=== PATIENT | male | born 1965 | race Caucasian/White ===

== ENCOUNTER 2023-05-09 06:31 | Observation (INO) | payer OTHER, SELFPAY ==
[2023-05-09] VITALS (31 sets, daily range): BP systolic 86–104; BP diastolic 48–71; PULSE 69–92; RESP 10–23; TEMP 36.6–37.1; O2SAT 97–100; BMI 29.5
--- NOTE | ~2023-05-09 | US_ITS ---
Renal-Bladder ultrasound Clinical History: Elevated creatinine Technique: Real-time sonographic imaging of the kidneys and urinary bladder was performed. Findings: The right kidney measures 11.1 cm in length and the left kidney measures 12.6 cm. There is no hydronephrosis or renal calculus identified. Renal cortical echogenicity is within normal limits. No renal mass lesion is identified. The urinary bladder is moderately distended at the time of this exam. No intraluminal echoes are iden tified. No abnormal wall thickening is seen. Impression: Unremarkable ultrasound of the kidneys and urinary bladder. Reviewed, dictated and finalized at location M. Impression: Unremarkable ultrasound of the kidneys and urinary bladder.
--- NOTE | ~2023-05-09 | CT_ITS ---
Non-contrast CT scan of the Abdomen and Pelvis Clinical indication: Epigastric pain Technique: 2.5 mm axial scans were obtained through the abdomen and pelvis without intravenous or or al contrast. Dose reduction technique was used on this scan by utilizing automated exposure control a nd iterative reconstruction technique. The dose-length product (DLP) was 920.39 mGy-cm. Findings: Images through the lung bases reveal no abnormalities. There is no evidence of renal or ureteral calculi. The kidneys and the ureters are nondilated. Possib le 1.5 cm exophytic mass at the lower pole the left kidney, indeterminate on noncontrast exam. There is diffuse fatty infiltration of the liver, probable focal areas of fatty sparing adjacent to t he gallbladder. The spleen, pancreas, gallbladder, and adrenals appear normal. There are atherosclero tic calcifications of the aorta. There is no evidence of bowel obstruction. There is sigmoid diverticulosis. No abscess or free air. N ormal appendix. Images through the pelvis were performed. There is no evidence of ascites or lymphadenopathy. Urinary bladder unremarkable. Prostate gland and seminal vesicles are unremarkable. Bilateral fat-containing inguinal hernias are present, right larger than left. Impression: Suspected 1.5 cm exophytic mass at the lower pole the left kidney, indeterminate. Follow-up pre- and postcontrast CT or MR recommended to further evaluate. Diffuse fatty infiltration of liver. Bilateral fat-containing hernias, right larger than left. Reviewed, dictated and finalized at [facility]. Impression: Suspected 1.5 cm exophytic mass at the lower pole the left kidney, indeterminat e. Follow-up pre- and postcontrast CT or MR recommended to further evaluate. Diffuse fatty infiltration of liver. Bilateral fat-containing hernias, right larger than left.
--- NOTE | ~2023-05-09 | US_ITS ---
Limited Abdominal Sonogram: Real-time sonographic imaging of the right upper quadrant was performed. Clinical History: Right upper quadrant pain Findings: The liver appears echogenic, with no evidence of bile duct dilatation. Liver measures 21.1 cm in length. Probable focal fatty sparing adjacent to the gallbladder. Main portal vein demonstrate s normal direction of flow. The gallbladder is well distended, and appears normal with no evidence of gallstone or wall thickening. The common bile duct measures 5 mm. The visualized pancreas, aorta, a nd IVC are unremarkable. Impression: Diffuse fatty infiltration of the liver with associated hepatomegaly. Probable focal fatty sparing adjacent to gallbladder. Reviewed, dictated and finalized at location . Impression: Diffuse fatty infiltration of the liver with associated hepatomegaly. Probable focal fatty sparing adjacent to gallbladder.
--- NOTE | ~2023-05-09 | XR_ITS ---
Clinical Indication: Shortness of breath PA and lateral views of the chest: Comparison: 09/26/2006 Findings: The lungs are clear, without evidence of focal consolidation or pleural effusion. Cardiome diastinal silhouette is within normal limits. Bones and soft tissues are unremarkable. Impression: Normal chest. Reviewed, dictated and finalized at location . Impression: Normal chest.
--- NOTE | 2023-05-09 07:24 | ED.GENADULT ---
HPI - General Adult General Chief complaint: Urogenital-Male Stated complaint: have not had a BM in ten days Time Seen by Provider: 05/09/23 07:01 History of Present Illness HPI narrative: Patient is a 58-year-old male who presents to the ER with reports of constipation and decreased urination. Ongoing over the last week and a half. Reports he has been eating and drinking normally. Reports he is increased his fluid intake due to decreased urination. Denies history of kidney issues. No urinary frequency urgency or dysuria. He has been having some abdominal fullness and pain. Occasionally pain will move back in between his shoulder blades. No chest pain or chest pressure. No fevers or chills or sweats. He reports that he has had small volume hard stool. No weight loss. Related Data Home Medications Medication Instructions Recorded Confirmed albuterol sulfate 90 mcg/actuation 2 puff inhalation PRN 05/09/23 05/09/23 aerosol inhaler apixaban 5 mg tablet (Eliquis) 5 mg PO DAILY 05/09/23 05/09/23 atorvastatin 20 mg tablet 20 mg PO DAILY 05/09/23 05/09/23 cyclobenzaprine 10 mg tablet 10 mg PO TID 05/09/23 05/09/23 hydrocodone 10 mg-acetaminophen 10 tablet PO Q4H PRN Pain 05/09/23 05/09/23 325 mg tablet insulin glargine 100 unit/mL (3 30 unit subcut HS 05/09/23 05/09/23 mL) subcutaneous pen (Basaglar KwikPen U-100 Insulin) lisinopril 10 mg tablet 10 mg PO DAILY 05/09/23 05/09/23 metoprolol succinate 25 mg 25 mg PO DAILY 05/09/23 05/09/23 tablet,extended release 24 hr nitroglycerin 0.4 mg sublingual 0.4 mg sublingual ONCE PRN Chest 05/09/23 05/09/23 tablet Pain triamterene 75 75 tablet PO DAILY 05/09/23 05/09/23 mg-hydrochlorothiazide 50 mg tablet Allergies Allergy/AdvReac Type Severity Reaction Status Date / Time No Known Allergies Allergy Unknown Verified 05/09/23 15:28 Review of Systems Review of Systems: All systems reviewed & are unremarkable except as noted in HPI and below Constitutional: Constitutional: Denies chills, Reports fatigue and Denies fever(s) ENT: Denies nasal congestion and Denies sore throat Cardiovascular: Cardiovascular: Denies chest pain, Denies rapid heart rate and Denies radiating jaw, neck or arm pain Respiratory: Respiratory: Denies cough and Denies dyspnea Gastrointestinal: Gastrointestinal: Reports abdominal pain, Reports constipation, Denies nausea and Denies vomiting Genitourinary: Genitourinary: Reports oliguria, Denies dysuria, Denies urinary frequency and Denies urinary incontinence PMFSH Past Medical History Medical History (Updated 05/09/23 @ 18:10 by Smooth Rosa MD) Atrial fibrillation Diabetes Hyperlipidemia Hypertension Surgical History Surgical History (Updated 05/09/23 @ 14:55 by Daniella Burgos NP) H/O cardiac radiofrequency ablation Family History Family History Mother Cerebrovascular accident Heart attack AA (alcohol abuse) Father Heart attack MVA (motor vehicle accident) Social History Social History (Updated 05/09/23 @ 14:57 by Daniella Burgos NP) Social History: The patient lives with his significant other Selina justin is his durable power front desk supervisor for healthcare. The patient was smoking a pack a cigarettes a day but has not smoked any in the last 10 days. He also drinks a couple drinks a day but has not drank any since he has felt ill. He does use marijuana. Patient has had 8-9 biological children but most of them were given up for adoption. The patient is . 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 Code status full code Smoking status: Current some day smoker Tobacco type: cigarettes Alcohol intake: former Substance use: current Substance use type: marijuana Last use: 05/08/23 Lack of Transportation: No Lack of Food: Never True Current Housing: I Have Housing Concerned About Future Housing: No Difficulty
--- NOTE | 2023-05-09 07:25 | ECG_ITS ---
Measurements Intervals [place] Rate: 69 P: 65 IN: 191 QRS: 72 QRSD: 105 T: 70 QT: 392 QTc: 420 Interpretive Statements SINUS RHYTHM NONSPECIFIC T-WAVE ABNORMALITY- HIGH LATERAL LEADS BORDERLINE ECG NO PREVIOUS ECG AVAILABLE FOR COMPARISON Electronically Signed On 05-09-2023 8:00:58 CDT by Hugo Bravo D.O.
[2023-05-09] MEDS: SODIUM CHLORIDE 0.9% IV 1,000 ML 999 ML IV CONT ×2 (07:35→09:50)
[2023-05-09 07:50] LABS: Basophils Absolute Auto 0.1 K/mm3 (0.0-0.1); Basophils Percent Auto 0.8 % (0.2-1.2); Eosinophils Absolute Auto 0.2 K/mm3 (0-0.3); Eosinophils Percent Auto 2.3 % (0-4.4); Hematocrit 36.5 % (42.0-52.0); Hemoglobin 12.2 g/dL (14.0-18.0); Immature Granulocyte Absolute 0.17 K/mm3 (0.00-0.031); Immature Granulocyte Percent A 1.9 % (0-0.5); Lymphocytes Percent Auto 21.9 % (18.3-44.2); Mean Corpuscular HGB Conc 33.4 g/dl (32-36); Mean Corpuscular Volume 92.9 fl (80-100); Mean Platelet Volume 10.1 fl (7.4-10.4); Monocytes Absolute Auto 0.7 K/mm3 (0.1-0.6); Monocytes Percent Auto 7.5 % (2.6-8.5); Neutrophils Percent Auto 65.6 % (45.5-73.1); Platelet Count Result 209 k/mm3 (150-375); Red Blood Count 3.93 M/mm3 (4.6-6.20); Red Cell Distribution Width 12.5 % (11.5-14.5); White Blood Count 9.1 K/mm3 (4.5-10.0)
[2023-05-09 08:00] LABS: Alanine Aminotransferase 63 U/L (6-50); Albumin Level 4.1 g/dL (3.5-5.1); Alkaline Phosphatase 76 U/L (38-126); Anion Gap 12 mmol/L (8-16); Aspartate Amino Transferase 60 U/L (17-59); Bilirubin,Total 0.3 mg/dL (0.2-1.3); Blood Urea Nitrogen 92 mg/dL (9-20); Calcium 11.4 mg/dL (8.4-10.2); Carbon Dioxide 17 mmol/L (22-30); Chloride 102 mmol/L (98-107); Estimated CRCL calculation 25 ml/min; Estimated Glomerular Filt Rate 17; Glucose 156 mg/dL (65-110); Lipase 376 U/L (23-300); Potassium 3.9 mmol/L (3.4-5.0); Sodium 131 mmol/L (137-145)
[2023-05-09 08:01] LABS: INR 1.5; Prothrombin Time 19.1 Seconds (11.1-14.7)
[2023-05-09 08:02] LABS: Partial Thromboplastin Time 32.1 SECONDS (22.3-36.8)
[2023-05-09 08:12] LABS: Troponin I 0.022 ng/mL (0.000-0.034)
[2023-05-09 09:10] LABS: Appearance Urine Clear (Clear); Bacteria Urine None Seen /hpf; Bilirubin Urine Negative (Negative); Blood Urine Negative (Negative); Color Urine Yellow (Yellow); Glucose Urine UA Negative (Negative); Ketones Urine Negative (Negative); Leukocyte Esterase Ur Negative LEU/UL (Negative); Nitrate Urine Negative (Negative); Non Pathogenic Casts 0-2; Protein Urine 1+ mg/dL (Negative); RBC Urine 0-2 /hpf (0-2); Specific Grav Ur 1.011 (1.001-1.035); Squamous Epithelial Cell Urine None seen /hpf (Few); Urobilinogen Urine 0.2 mg/dL (<2.0); WBC Urine 0-5 /hpf; pH Urine 6.5 (5.0-9.0)
[2023-05-09 10:03] LABS: Add Urine Microscopic? YES
--- NOTE | 2023-05-09 10:22 | PM.CNNEP ---
Assessment and Plan Assessment and plan (1) Acute kidney injury: Code(s): N17.9 - Acute kidney failure, unspecified Status: Acute Assessment and Plan: the patient has acute kidney injury. We do not have any old records right now but he has never been told he had kidney problems in the past and has several doctors looking at him for his various disorders. The patient has nausea and vomiting. It is possible that the nausea and vomiting could be caused by uremia. It is also possible that the nausea and vomiting could be caused by something else and he got dehydrated causing the high BUN creatinine. He does not look volume overloaded. Has no swelling. The patient does seem to have some prostatic symptoms however his CT scan did not show a distended bladder and the prostate does not look remarkable. I will have the nurse do a bladder scan in case there is some bladder distention. The patient is on ibuprofen which probably did not primarily cause the renal failure but certainly may have made it worse. The patient has a little bit of protein in his urine but not much blood. It is likely the protein is from the diabetes and or the hypertension but glomerulonephritis is always possible. Will check some serology. Rhabdomyolysis could be occurring. 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 Infiltrative diseases can do this as well. Will get immunofixation. The patient will get a chest x-ray, CPK, serology, immunofixation, urine electrolytes and a renal ultrasound. Will give some IV fluid, he is certainly at least a little dry since he has not been taking anything in for the last 10 days. Will see what the bladder scan shows. (2) Hypertension: Code(s): I10 - Essential (primary) hypertension Status: Acute Assessment and Plan: Blood pressure is under good control (3) Diabetes: Code(s): E11.9 - Type 2 diabetes mellitus without complications Status: Acute Assessment and Plan: Management per hospitalists (4) Atrial fibrillation: Code(s): I48.91 - Unspecified atrial fibrillation Status: Acute Assessment and Plan: His heart rate is well controlled and he is in sinus rhythm History of Present Illness Reason for Consult Consult date: 05/09/23 Chief Complaint Chief complaint: have not had a BM in ten days History of Present Illness Narrative: Mr. Ortega Altman is a very pleasant 58-year-old gentleman who has multiple medical problems including atrial fibrillation status post ablation, hypertension, diabetes, hyperlipidemia. The patient came to the hospital because he was having belly discomfort. It is mostly in the lower abdomen. This is been going on for about 10 days or so. At 1st it started with diarrhea but then the diarrhea stops the knees had trouble with bowel movements ever since. He has had some nausea and vomiting. He has not been eating very well. No fevers or chills. No skin rash. No chest pain or shortness of breath. No swelling. The patient has also been having urinary issues. He gets up at night at least 2-3 times per night to urinate. The stream is slow and the volume is low. There is some dribbling as well. This is been a problem for the last year or so but seems to have worsened. He did make some urine earlier today. He does not have any bloody urine, foamy urine, kidney stones, bladder infections. He does not have any hemoptysis or epistaxis. He takes ibuprofen every day. He drinks socially. He smokes cigarettes. Review of Systems Constitutional: Constitutional: Reports no additional constitutional complaints Eyes: Eyes: Reports no additional eye complaints ENT: Reports system reviewed and no additional complaints, except as documented Cardiovascular: Cardiovascular: Reports no additional cardiovascular complaints Respiratory: Respiratory: Reports no additional respiratory complaints Gastrointes
--- NOTE | 2023-05-09 11:00 | ADMGEN ---
This patient, Robert Tse, was admitted to 2 Medical Room 260-. Patient/family oriented to hospital policies and general routines including ID bracelet, bed and alarms, visiting hours, pain management, procedures, bathroom and other care routines, personal items, smoking policy, room service/diet, and visiting hours. Information on how to activate the Rapid Response Team has been discussed. Patient/Family are encouraged to report perceived risks to care and to ask questions if they do not understand what they are told or what they should do.
[2023-05-09] MEDS: SODIUM CHLORIDE 0.9% IV 1,000 ML 125 ML IV CONT ×2 (11:27→19:21)
[2023-05-09 11:37] LABS: Creatine Kinase 49 U/L (55-170)
[2023-05-09 12:33] LABS: Erythrocyte Sedimentation Rate 41 mm/hr (0-20)
--- NOTE | 2023-05-09 12:45 | PM.IMHP ---
H&P: HPI History of Present Illness Date/Time: 05/09/23 12:45 Chief Complaint: The vomiting and fatigue Review of Systems Review of Systems: This is a 58-year-old male patient who has a history of hypertension. He has no previous history of any chronic renal disease. 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 He continued to take his diuretics. The patient just feels very fatigued. He has been sleeping a lot. H&H is 12.2 and 36. ESR is 41. Sodium is 139. BUN 92 creatinine 3.8. Glucose is 156. AST 60 and ALT 63. The patient stated that he did have some nausea and vomiting as well. His lipase was 376. Nephrology has been consulted. Chest x-ray was read as normal chest. Renal ultrasound was read as unremarkable ultrasound of the kidneys and urinary bladder. Patient stated that he has had decreased urination. Abdominal pelvis CT was read as the following Suspected 1.5 cm exophytic mass at the lower pole the left kidney, indeterminate. Follow-up pre- and postcontrast CT or MR recommended to further evaluate. Diffuse fatty infiltration of liver. Bilateral fat-containing hernias, right larger than left. Upper quadrant I her son has redness following Diffuse fatty infiltration of the liver with associated hepatomegaly. Probable focal fatty sparing adjacent to gallbladder. Patient was given 3 L of IV fluids. The patient is being admitted to observation status on the date as is 05/09/2023 [facility] Past Medical History Medical History (Updated 05/09/23 @ 14:55 by Daniella Burgos NP) Atrial fibrillation Diabetes Hyperlipidemia Hypertension Surgical History Surgical History (Updated 05/09/23 @ 14:55 by Daniella Burgos NP) H/O cardiac radiofrequency ablation Family History Family History Mother Cerebrovascular accident Heart attack AA (alcohol abuse) Father Heart attack MVA (motor vehicle accident) Social History Social History (Updated 05/09/23 @ 14:57 by Daniella Burgos NP) Social History: The patient lives with his significant other Selina justin is his durable power assistant city attorney for healthcare. The patient was smoking a pack a cigarettes a day but has not smoked any in the last 10 days. He also drinks a couple drinks a day but has not drank any since he has felt ill. He does use marijuana. Patient has had 8-9 biological children but most of them were given up for adoption. The patient is . 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 Code status full code Smoking status: Current some day smoker Tobacco type: cigarettes Alcohol intake: former Substance use: current Substance use type: marijuana Last use: 05/08/23 Lack of Transportation: No Lack of Food: Never True Current Housing: I Have Housing Concerned About Future Housing: No Difficulty Paying Gas/Electric Bills: No Difficulty Paying for Meds: No Currently Unemployed: No Education: High School Diploma/GED Difficulty w/ Childcare or Family Care: No Spiritual care concerns: No Meds Home Medications and Allergies Home Medications Medication Instructions Recorded Confirmed Type albuterol sulfate 90 mcg/actuation 2 puff inhalation PRN 05/09/23 05/09/23 History aerosol inhaler apixaban 5 mg tablet (Eliquis) 5 mg PO DAILY 05/09/23 05/09/23 History atorvastatin 20 mg tablet 20 mg PO DAILY 05/09/23 05/09/23 History cyclobenzaprine 10 mg tablet 10 mg PO TID 05/09/23 05/09/23 History hydrocodone 10 mg-acetaminophen 10 tablet PO Q4H PRN Pain 05/09/23 05/09/23 History 325 mg tablet insulin glargine 100 unit/mL (3 30 unit subcut HS 05/09/23 05/09/23 History mL) subcutaneous pen (Basaglar KwikPen U-100 Insulin) lisinopril 10 mg tablet 10 mg PO DAILY 05/09/23 05/09/23 History me
[2023-05-09 13:15] LABS: Urea Random Urine 469 MG/DL
[2023-05-09 13:36] LABS: Sodium Urine Random 53 meq/L
[2023-05-09 16:07] LABS: Complement C3 183 mg/dL (88-165)
[2023-05-09 17:06] LABS: Glucose Point of Care 201 mg/dl (65-105)
[2023-05-09] MEDS: HYDROcodone/acetaminophen (*CRX) 10-325 MG TABLET 1 TAB PO ×2 (17:13→21:15)
[2023-05-09] MEDS: CYCLOBENZAPRINE HCL 10 MG TABLET PO (17:14)
[2023-05-09] MEDS: INSULIN ASPART (*BKC) 100 UNITS/ML SUB-Q ×2 (17:17→20:49)
[2023-05-09 20:09] LABS: Total Protein Urine Random 27 mg/dL; Ur Ttl Prot Creatinine Ratio 0.47 mg/mg (0-0.20)
[2023-05-09] MEDS: INSULIN GLARGINE (*BKC) 100 UNITS/ML 30 UNITS SUB-Q (20:50)
[2023-05-09 20:59] LABS: Glucose Point of Care 203 mg/dl (65-105)
[2023-05-10] MEDS: HYDROcodone/acetaminophen (*CRX) 10-325 MG TABLET 1 TAB PO ×4 (02:35→19:28)
[2023-05-10] MEDS: SODIUM CHLORIDE 0.9% IV 1,000 ML 125 ML IV CONT ×3 (03:20→19:28)
[2023-05-10 05:40] VITALS: BP 100/55; PULSE 75; RESP 17; TEMP 36.7; O2SAT 100
[2023-05-10 05:46] LABS: Lactic Acid Reflex 0.8 mmol/L (0.7-2.0)
[2023-05-10 05:50] LABS: Alanine Aminotransferase 57 U/L (6-50); Albumin Level 3.7 g/dL (3.5-5.1); Alkaline Phosphatase 62 U/L (38-126); Anion Gap 9 mmol/L (8-16); Aspartate Amino Transferase 49 U/L (17-59); Bilirubin,Total 0.2 mg/dL (0.2-1.3); Blood Urea Nitrogen 59 mg/dL (9-20); Calcium 9.9 mg/dL (8.4-10.2); Carbon Dioxide 16 mmol/L (22-30); Chloride 114 mmol/L (98-107); Estimated CRCL calculation 49 ml/min; Estimated Glomerular Filt Rate 45; Glucose 135 mg/dL (65-110); Magnesium 1.9 mg/dL (1.6-2.3); Phosphorus 3.9 mg/dL (2.5-4.5); Potassium 3.9 mmol/L (3.4-5.0); Sodium 139 mmol/L (137-145)
[2023-05-10 06:54] LABS: Thyroid Stimulating Hormone Reflex 0.481 uIU/mL (0.465-4.68)
[2023-05-10 07:36] LABS: Hemoglobin A1C 8.1 % (<5.7)
[2023-05-10 08:20] VITALS: PULSE 76; RESP 18; O2SAT 100
[2023-05-10] MEDS: METOPROLOL SUCCINATE EXT REL 25 MG TABCR PO (08:20)
[2023-05-10] MEDS: ATORVASTATIN 20 MG TABLET PO (08:20)
[2023-05-10] MEDS: CYCLOBENZAPRINE HCL 10 MG TABLET PO ×3 (08:20→16:37)
[2023-05-10] MEDS: APIXABAN 5 MG TABLET PO (08:20)
[2023-05-10 08:27] LABS: Glucose Point of Care 151 mg/dl (65-105)
[2023-05-10 12:35] LABS: Glucose Point of Care 173 mg/dl (65-105)
[2023-05-10 14:00] VITALS: BP 109/56; PULSE 87; RESP 16; TEMP 36.5; O2SAT 99
--- NOTE | 2023-05-10 14:35 | PM.PNNEP ---
Progress Note: A&P Assessment and Plan (1) Acute kidney injury: Code(s): N17.9 - Acute kidney failure, unspecified Status: Acute Assessment and Plan: the patient has acute kidney injury. Urine electrolytes non pre renal Fractional excretion of urine is less than 25% which is consistent with pre renal azotemia. Urinalysis is bland CK is not elevated Renal sonogram shows no obstruction Most likely this is pre renal azotemia. Ibuprofen may have been playing a role as well. Urine output is better. Creatinine is improved. Continue IV fluids. (2) Hypertension: Code(s): I10 - Essential (primary) hypertension Status: Acute Assessment and Plan: Blood pressure is under good control (3) Diabetes: Code(s): E11.9 - Type 2 diabetes mellitus without complications Status: Acute Assessment and Plan: Management per hospitalists (4) Atrial fibrillation: Code(s): I48.91 - Unspecified atrial fibrillation Status: Acute Assessment and Plan: His heart rate is well controlled and he is in sinus rhythm Subjective Date/time seen: 05/10/23 14:35 Interval history: Patient feels better today. No chest pain or shortness of breath Review of Systems Cardiovascular: Cardiovascular: Reports no additional cardiovascular complaints Respiratory: Respiratory: Reports no additional respiratory complaints Gastrointestinal: Gastrointestinal: Reports no additional gastrointestinal complaints Genitourinary: Genitourinary: Reports no additional male genitourinary complaints Exam Narrative: WDWN in NAD skin no rash head ncat lungs clear cor reg no rub abd BS+ nontender and soft ext no edema. Objective Data Vital Signs Vital Signs: Vital Signs - 24 hr 05/09/23 21:37 05/09/23 20:00 05/10/23 05:40 Temperature 97.9 F 98.0 F Pulse Rate 84 75 Respiratory Rate 18 17 Blood Pressure 102/56 L 100/55 L Pulse Oximetry 99 100 Oxygen Delivery Room Air 05/10/23 08:20 05/10/23 08:20 Temperature Pulse Rate 76 Respiratory Rate 18 Blood Pressure Pulse Oximetry 100 Oxygen Delivery Room Air Intake/Output Intake/Output: Intake & Output 05/07/23 05/08/23 05/09/23 05/10/23 23:59 23:59 23:59 23:59 Intake Total 3580 3030 Output Total 1600 2500 Balance 1980 530 Meds/Results Medications: Active Medications Generic Name Dose Route Start Last Admin Trade Name Freq PRN Reason Stop Dose Admin Acetaminophen 650 mg 05/09/23 09:49 Acetaminophen 325 Mg Tablet PO Q4H PRN Mild Pain (1-3) or Fever Hydrocodone Bitart/Acetaminophen 1 tab 05/09/23 09:49 Hydrocodone/Acetaminophen (*Crx) 5-325 Mg Tablet PO Q4H PRN Pain Rated 4-6 Hydrocodone Bitart/Acetaminophen 1 tab 05/09/23 14:58 05/10/23 12:47 Hydrocodone/Acetaminophen (*Crx) 10-325 Mg Tablet PO 1 tab Q4H PRN Administration Pain 7-10 Albuterol 2 puff 05/09/23 15:00 Albuterol Sulfate (*Sp) Aerosol 1 Puff INHALATION PRN PRN Shortness Of Breath Apixaban 5 mg 05/10/23 09:00 05/10/23 08:20 Apixaban 5 Mg Tablet PO 5 mg DAILY THUY Administration Atorvastatin Calcium 20 mg 05/10/23 09:00 05/10/23 08:20 Atorvastatin 20 Mg Tablet PO 20 mg DAILY THUY Administration Cyclobenzaprine HCl 10 mg 05/09/23 17:00 05/10/23 12:47 Cyclobenzaprine Hcl 10 Mg Tablet PO 10 mg TID THUY Administration Dextrose 12.5 gm 05/09/23 14:59 Dextrose 50% 25 Gm/50 Ml Syringe IV PUSH PRN PRN Hypoglycemia Protocol Docusate Sodium 100 mg 05/10/23 21:00 Docusate Sodium 100 Mg Capsule PO Q12HR THUY Glucagon 1 mg 05/09/23 14:59 Glucagon For Inj 1 Mg Vial IM PRN PRN Hypoglycemia Protocol Glucose 15 gm 05/09/23 14:59 Glucose Oral Gel 15 Gm Of Glucse In 37.5 Gm Tube PO PRN PRN Hypoglycemia Protocol Sodium Chloride 1,000 mls @ 125 mls/hr
--- NOTE | 2023-05-10 14:38 | WPDPN ---
Progress Note: A&P Assessment and Plan (1) Acute kidney injury: Code(s): N17.9 - Acute kidney failure, unspecified Status: Acute Assessment and Plan: Patient stated he has had no previous history of any chronic kidney disease. The patient states that he feels that he got dehydrated and was overheated at work 1 day and has never regained his hydration. The patient also had nausea and vomiting. The patient continued to take his triamterene with hydrochlorothiazide. He is also on lisinopril. All of these medications could of made his renal failure worse. He also has a history of hypertension and diabetes. Which could contribute to his renal failure. Continue to hydrate. Nephrology has been consulted. Further labs have been ordered. Renal ultrasound revealing is unremarkable kidneys. Abdominal pelvis CT was read as follows Suspected 1.5 cm exophytic mass at the lower pole the left kidney, indeterminate. Follow-up pre- and postcontrast CT or MR recommended to further evaluate. Diffuse fatty infiltration of liver. Bilateral fat-containing hernias, right larger than left. 05/10/2023 interval history: patient with TREMAINE seen by dip guider stoves suspect multifactorial with dehydration from poor PO intake due to nausea and vomiting, patient stats he is feeling better, and work up is in progress, will monito. (2) Hypertension: Code(s): I10 - Essential (primary) hypertension Status: Acute Assessment and Plan: Hold lisinopril due to acute renal failure. Hold diuretics as well. continue with metoprolol. His blood pressure is low at 101/53. (3) Diabetes: Code(s): E11.9 - Type 2 diabetes mellitus without complications Status: Acute Assessment and Plan: Accu-Cheks AC and HS. Continue with glargine insulin with hypoglycemic protocol. (4) Atrial fibrillation: Code(s): I48.91 - Unspecified atrial fibrillation Status: Acute Assessment and Plan: The patient has had an ablation and sounds regular now. EKG was read as sinus rhythm. The patient is on Eliquis and metoprolol. (5) Hyperlipidemia: Code(s): E78.5 - Hyperlipidemia, unspecified Status: Acute Assessment and Plan: Continue with atorvastatin. Subjective Date/time seen: 05/10/23 14:38 Interval history: HPI This is a 58-year-old male patient who has a history of hypertension.? He has no previous history of any chronic renal disease.? 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 He continued to take his diuretics.? The patient just feels very fatigued.? He has been sleeping a lot.? H&H is 12.2 and 36.? ESR is 41.? Sodium is 139.? BUN 92 creatinine 3.8.? Glucose is 156.? AST 60 and ALT 63.? The patient stated that he did have some nausea and vomiting as well.? His lipase was 376.? Nephrology has been consulted.? Chest x-ray was read as normal chest.? Renal ultrasound was read as unremarkable ultrasound of the kidneys and urinary bladder.? Patient stated that he has had decreased urination.? Abdominal pelvis CT was read as the following?Suspected 1.5 cm exophytic mass at the lower pole the left kidney, indeterminate. Follow-up pre- and postcontrast CT or MR recommended to further evaluate. Diffuse fatty infiltration of liver. Bilateral fat-containing hernias, right larger than left. Upper quadrant I her son has redness following Diffuse fatty infiltration of the liver with associated hepatomegaly. Probable focal fatty sparing adjacent to gallbladder.? Patient was given 3 L of IV fluids 05/10/2023 interval history: patient with TREMAINE seen by dip guider stoves suspect multifactorial with dehydration from poor PO intake due to nausea and vomiting, patient stats he is feeling better, and work up is in progress, will monito. Review of Systems Cardiovascular: Cardiovas
[2023-05-10] MEDS: polyethylene glycoL 3350 17 GM POWD.PACK PO (14:58)
[2023-05-10 17:34] LABS: Glucose Point of Care 134 mg/dl (65-105)
[2023-05-10] MEDS: INSULIN ASPART (*BKC) 100 UNITS/ML SUB-Q (20:30)
[2023-05-10] MEDS: DOCUSATE SODIUM 100 MG CAPSULE PO (20:30)
[2023-05-10] MEDS: INSULIN GLARGINE (*BKC) 100 UNITS/ML 30 UNITS SUB-Q (20:31)
[2023-05-10 20:48] LABS: Glucose Point of Care 217 mg/dl (65-105)
[2023-05-10 21:01] VITALS: BP 103/59; PULSE 88; RESP 17; TEMP 36.6; O2SAT 99
[2023-05-11 07:20] LABS: Hemoglobin 10.4 g/dL (14.0-18.0); Mean Corpuscular HGB Conc 32.5 g/dl (32-36); Mean Corpuscular Volume 95.2 fl (80-100); Mean Platelet Volume 9.7 fl (7.4-10.4); Platelet Count Result 140 k/mm3 (150-375); Red Blood Count 3.36 M/mm3 (4.6-6.20); Red Cell Distribution Width 12.6 % (11.5-14.5); White Blood Count 4.3 K/mm3 (4.5-10.0)
[2023-05-11 07:25] LABS: Albumin Level 3.4 g/dL (3.5-5.1); Anion Gap 8 mmol/L (8-16); Blood Urea Nitrogen 33 mg/dL (9-20); Calcium 9.1 mg/dL (8.4-10.2); Carbon Dioxide 17 mmol/L (22-30); Chloride 116 mmol/L (98-107); Estimated CRCL calculation 85 ml/min; Estimated Glomerular Filt Rate > 60; Glucose 115 mg/dL (65-110); Magnesium 1.6 mg/dL (1.6-2.3); Phosphorus 2.8 mg/dL (2.5-4.5); Potassium 3.9 mmol/L (3.4-5.0); Sodium 141 mmol/L (137-145)
[2023-05-11] MEDS: HYDROcodone/acetaminophen (*CRX) 10-325 MG TABLET 1 TAB PO ×2 (08:16→14:03)
[2023-05-11 08:28] LABS: Glucose Point of Care 131 mg/dl (65-105)
[2023-05-11 08:58] VITALS: PULSE 88
[2023-05-11] MEDS: APIXABAN 5 MG TABLET PO (08:58)
[2023-05-11] MEDS: METOPROLOL SUCCINATE EXT REL 25 MG TABCR PO (08:58)
[2023-05-11] MEDS: CYCLOBENZAPRINE HCL 10 MG TABLET PO ×2 (08:59→14:03)
[2023-05-11] MEDS: DOCUSATE SODIUM 100 MG CAPSULE PO (08:59)
[2023-05-11] MEDS: ATORVASTATIN 20 MG TABLET PO (08:59)
--- NOTE | 2023-05-11 11:02 | PM.PNNEP ---
Progress Note: A&P Assessment and Plan (1) Acute kidney injury: Code(s): N17.9 - Acute kidney failure, unspecified Status: Acute Assessment and Plan: the patient has acute kidney injury. Urine electrolytes non pre renal Fractional excretion of urine is less than 25% which is consistent with pre renal azotemia. Urinalysis is bland CK is not elevated Renal sonogram shows no obstruction Acute kidney injury due to dehydration and ibuprofen. His creatinine has come down to normal. Urine output is better. He is eating well. Will stop IV fluids. His bicarbonate level is a little low, left over from the acute kidney injury and hydration. Will give sodium bicarbonate to take for a couple of weeks but probably will not need this long-term. Home any time when everybody else is ready. (2) Hypertension: Code(s): I10 - Essential (primary) hypertension Status: Acute Assessment and Plan: Blood pressure is under good control (3) Diabetes: Code(s): E11.9 - Type 2 diabetes mellitus without complications Status: Acute Assessment and Plan: Management per hospitalists (4) Atrial fibrillation: Code(s): I48.91 - Unspecified atrial fibrillation Status: Acute Assessment and Plan: His heart rate is well controlled and he is in sinus rhythm Subjective Date/time seen: 05/11/23 11:02 Interval history: Patient feels better today. Lying in bed comfortably. No swelling. Breathing okay. Eating well. Walking in the halls. Exam Narrative: WDWN in NAD skin no rash or subQ nodules head ncat lungs clear cor reg no rub abd BS+ nontender and soft ext no edema or cyanosis. Objective Data Vital Signs Vital Signs: Vital Signs - 24 hr 05/10/23 14:00 05/10/23 21:01 05/10/23 20:00 Temperature 97.7 F 97.8 F Pulse Rate 87 88 Respiratory Rate 16 17 Blood Pressure 109/56 L 103/59 L Pulse Oximetry 99 99 Oxygen Delivery Room Air 05/11/23 08:58 Temperature Pulse Rate 88 Respiratory Rate Blood Pressure Pulse Oximetry Oxygen Delivery Intake/Output Intake/Output: Intake & Output 05/08/23 05/09/23 05/10/23 05/11/23 23:59 23:59 23:59 23:59 Intake Total 3580 4730 120 Output Total 1600 3500 Balance 1980 1230 120 Meds/Results Medications: Active Medications Generic Name Dose Route Start Last Admin Trade Name Moy PRN Reason Stop Dose Admin Acetaminophen 650 mg 05/09/23 09:49 Acetaminophen 325 Mg Tablet PO Q4H PRN Mild Pain (1-3) or Fever Hydrocodone Bitart/Acetaminophen 1 tab 05/09/23 09:49 Hydrocodone/Acetaminophen (*Crx) 5-325 Mg Tablet PO Q4H PRN Pain Rated 4-6 Hydrocodone Bitart/Acetaminophen 1 tab 05/09/23 14:58 05/11/23 08:16 Hydrocodone/Acetaminophen (*Crx) 10-325 Mg Tablet PO 1 tab Q4H PRN Administration Pain 7-10 Albuterol 2 puff 05/09/23 15:00 Albuterol Sulfate (*Sp) Aerosol 1 Puff INHALATION PRN PRN Shortness Of Breath Apixaban 5 mg 05/10/23 09:00 05/11/23 08:58 Apixaban 5 Mg Tablet PO 5 mg DAILY THUY Administration Atorvastatin Calcium 20 mg 05/10/23 09:00 05/11/23 08:59 Atorvastatin 20 Mg Tablet PO 20 mg DAILY THUY Administration Cyclobenzaprine HCl 10 mg 05/09/23 17:00 05/11/23 08:59 Cyclobenzaprine Hcl 10 Mg Tablet PO 10 mg TID THUY Administration Dextrose 12.5 gm 05/09/23 14:59 Dextrose 50% 25 Gm/50 Ml Syringe IV PUSH PRN PRN Hypoglycemia Protocol Docusate Sodium 100 mg 05/10/23 21:00 05/11/23 08:59 Docusate Sodium 100 Mg Capsule PO 100 mg Q12HR THUY Administration Glucagon 1 mg 05/09/23 14:59 Glucagon For Inj 1 Mg Vial IM PRN PRN Hypoglycemia Protocol Glucose 15 gm 05/09/23 14:59 Glucose Oral Gel 15 Gm Of Glucse In 37.5 Gm Tube PO PRN PRN Hypoglycemia Protocol Sodium Chloride 1,000 mls @ 125 mls/hr
[2023-05-11 12:10] LABS: Glucose Point of Care 277 mg/dl (65-105)
--- NOTE | 2023-05-11 12:29 | PM.DS ---
DS: Admitting Diagnosis Discharge Date 05/11/2023 Admitting Diagnosis Dehydration DS: Discharge Diagnosis Discharge Diagnosis (1) Acute kidney injury: Code(s): N17.9 - Acute kidney failure, unspecified Status: Acute Assessment and Plan: Patient stated he has had no previous history of any chronic kidney disease. The patient states that he feels that he got dehydrated and was overheated at work 1 day and has never regained his hydration. The patient also had nausea and vomiting. The patient continued to take his triamterene with hydrochlorothiazide. He is also on lisinopril. All of these medications could of made his renal failure worse. He also has a history of hypertension and diabetes. Which could contribute to his renal failure. Continue to hydrate. Nephrology has been consulted. Further labs have been ordered. Renal ultrasound revealing is unremarkable kidneys. Abdominal pelvis CT was read as follows Suspected 1.5 cm exophytic mass at the lower pole the left kidney, indeterminate. Follow-up pre- and postcontrast CT or MR recommended to further evaluate. Diffuse fatty infiltration of liver. Bilateral fat-containing hernias, right larger than left. 05/10/2023 interval history: patient with TREMAINE seen by shorer suspect multifactorial with dehydration from poor PO intake due to nausea and vomiting, patient stats he is feeling better, and work up is in progress, will monito. (2) Hypertension: Code(s): I10 - Essential (primary) hypertension Status: Acute Assessment and Plan: Hold lisinopril due to acute renal failure. Hold diuretics as well. continue with metoprolol. His blood pressure is low at 101/53. (3) Diabetes: Code(s): E11.9 - Type 2 diabetes mellitus without complications Status: Acute Assessment and Plan: Accu-Cheks AC and HS. Continue with glargine insulin with hypoglycemic protocol. (4) Atrial fibrillation: Code(s): I48.91 - Unspecified atrial fibrillation Status: Acute Assessment and Plan: The patient has had an ablation and sounds regular now. EKG was read as sinus rhythm. The patient is on Eliquis and metoprolol. (5) Hyperlipidemia: Code(s): E78.5 - Hyperlipidemia, unspecified Status: Acute Assessment and Plan: Continue with atorvastatin. DS: Summary Hospital Course Reason for hospitalization: Patient stated he has had no previous history of any chronic kidney disease.? The patient states that he feels that he got dehydrated and was overheated at work 1 day and has never regained his hydration.? The patient also had nausea and vomiting.? The patient continued to take his triamterene with hydrochlorothiazide.? He is also on lisinopril.? All of these medications could of made his renal failure worse.? He also has a history of hypertension and diabetes.? Which could contribute to his renal failure. Continue to hydrate.? Nephrology has been consulted.? Further labs have been ordered.? Renal ultrasound revealing is unremarkable kidneys.? Abdominal pelvis CT was read as follows Suspected 1.5 cm exophytic mass at the lower pole the left kidney, indeterminate. Follow-up pre- and postcontrast CT or MR recommended to further evaluate. ? Hospital Course: Patient presented with TREMAINE most likely 2/2 dehydration while taking his blood pressure medications, upon arrival his BUN/Scr was 92/3.8 patient was hydrated and his kidney function has improved to his baseline 33/0.9, he is clinically stable, will discharge patient today. Time Spent with Patient Time attestation: Total time spent providing and/or coordinating discharge services: Exam Narrative: Patient is comfortable, NAD HEENT: eyes are clear and none icteric LUNGS: Normal respiratory effort ABD: Distended Lower extremities: no edema SKIN: nonjaundiced Neuro: grossly intact. DS: Data Data Completed and Pending Labs on day of discharge:
[2023-05-11 13:42] VITALS: BP 110/68; PULSE 86; RESP 18; TEMP 36.7; O2SAT 100
[2023-05-11] MEDS: INSULIN ASPART (*BKC) 100 UNITS/ML SUB-Q (14:08)
[2023-05-11] MEDS: SODIUM BICARBONATE TAB 650 MG TABLET PO (14:08)
[2023-05-12 18:25] LABS: Complement Total CH50 60 U/mL (31-60)
[2023-05-14 13:01] LABS: Kappa\\Lambda Light Chains 1.32 (0.26-1.65); Lambda Light Chain 35.9 mg/L (5.7-26.3)
[2023-05-22 20:12] LABS: Albumin 11 %; Creat 24 Hr 1.68 g/24 h (0.50-2.15); Measured Kappa Chains 1.29 mg/dL (<2.00); Measured Lambda Chains <1.00 mg/dL (<2.00); Pro/Creat Ratio 305 mg/g creat (<100); Protein,total, 24 Hr Ur 514 mg/24 h (<100); Total Kappa Chains 50.955 mg/24 h
== END 2023-05-11 16:25 | disposition home or self-care (01) ==
LOC: ANHED 07:07 → ANH2MED 10:33
PROVIDERS: Internal Medicine Nephrology; Nurse Practitioner; Admitting Provider Family Medicine; Emergency Provider Emergency Medicine; PCP Nurse Practitioner Family; Visit Provider Family Medicine
DX: N17.9 Acute kidney failure, unspecified (principal); K59.00 Constipation, unspecified; K46.9 Unspecified abdominal hernia without obstruction or gangrene; K76.0 Fatty (change of) liver, not elsewhere classified; R16.0 Hepatomegaly, not elsewhere classified; R11.2 Nausea with vomiting, unspecified; R34 Anuria and oliguria; R10.9 Unspecified abdominal pain; R06.02 Shortness of breath; R53.83 Other fatigue; E11.65 Type 2 diabetes mellitus with hyperglycemia; I48.91 Unspecified atrial fibrillation; E78.5 Hyperlipidemia, unspecified; I10 Essential (primary) hypertension; D64.9 Anemia, unspecified; R79.89 Other specified abnormal findings of blood chemistry; R74.8 Abnormal levels of other serum enzymes; R74.01 Elevation of levels of liver transaminase levels; F17.210 Nicotine dependence, cigarettes, uncomplicated; F10.90 Alcohol use, unspecified, uncomplicated; F12.90 Cannabis use, unspecified, uncomplicated; Z79.51 Long term (current) use of inhaled steroids; Z79.1 Long term (current) use of non-steroidal anti-inflammatories (NSAID); Z79.4 Long term (current) use of insulin; Z79.01 Long term (current) use of anticoagulants; Z79.891 Long term (current) use of opiate analgesic; Z79.899 Other long term (current) drug therapy; Z82.49 Family history of ischemic heart disease and other diseases of the circulatory system
CPT/HCPCS: 36415; 71046; 74176; 76705; 76775; 80053; 80069; 81001; 82550; 82570; 82948; 83036; 83605; 83690; 83735; 83883; 84100; 84156; 84300; 84443; 84484; 84540; 85025; 85027; 85610; 85652; 85730; 86038; 86160; 86162; 86334; 86335; 93005; 96360; 96361; 99285; A9270; G0378; J1815; J7030

== ENCOUNTER 2024-11-05 17:58 | Emergency (ER) | payer OTHER, SELFPAY ==
--- NOTE | ~2024-11-05 | CT_ITS ---
EXAMINATION: CT thoracic lumbar wo con DATE: 11/05/2024 21:06 INDICATION: Back pain after fall on ice. TECHNIQUE: Computed tomography (CT) of the thoracic and lumbar spine was performed without intravenou s contrast. The dose-length product was 1563.94 mGy-cm. Automated exposure control and iterative sandro nstruction technique were employed. COMPARISON: None FINDINGS: There is a right transverse process fracture which appears chronic at L1. Accentuated thora cic kyphosis. There is degenerative disc disease at multiple levels of the midthoracic spine. Colonic diverticulosis without evidence for diverticulitis. There is mild degenerative disc disease at L5-S1 . There is facet hypertrophy at this level. No acute fracture or traumatic malalignment of the thorac ic or lumbar spine. IMPRESSION: 1. No acute abnormality of the thoracic or lumbar spine. 2: Nondisplaced right L1 transverse process fracture, likely chronic given the sclerotic margins. 3: Mild spondylosis of the thoracic and lumbar spine. Reviewed, dictated and finalized at location A. FRAME CONSULTANT
--- NOTE | ~2024-11-05 | CT_ITS ---
EXAMINATION: CT brain wo con DATE: 11/05/2024 21:06 INDICATION: Status post fall on ice. Headache. Patient on blood thinners. TECHNIQUE: Computed tomography (CT) of the head was performed without intravenous contrast. The dose- length product was 756.67 mGy-cm. Automated exposure control and iterative reconstruction technique w ere employed. COMPARISON: None FINDINGS: There is mucosal thickening of the maxillary and ethmoid sinuses. Mastoids are pneumatized. No depressed skull fractures. No acute intracranial hemorrhage, infarction, mass or mass effect. The re is mucosal thickening of the ethmoid and right maxillary sinuses. No acute intracranial hemorrhage , infarction, mass or mass effect. Basilar cisterns are patent. IMPRESSION: 1. No acute intracranial abnormality. Reviewed, dictated and finalized at location A. AL APPRENTICE
--- NOTE | ~2024-11-05 | CT_ITS ---
EXAMINATION: CT cervical spine wo con DATE: 11/05/2024 21:06 INDICATION: Status post fall on ice. Neck pain. TECHNIQUE: Computed tomography (CT) of the cervical spine was performed without intravenous contrast. The dose-length product was 609 mGy-cm. Automated exposure control and iterative reconstruction tech nique were employed. COMPARISON: None FINDINGS: Lung apices are unremarkable. There is degenerative anterolisthesis at C6-7 measuring 1-2 m m. Craniovertebral junction is normal. Odontoid process is within normal limits. No evidence for perc hed facet. There is multilevel uncinate and facet hypertrophy. No acute fracture or traumatic malalig nment. IMPRESSION: 1. No acute abnormality of the cervical spine. Reviewed, dictated and finalized at location A. R POLLUTION CONTROL INSPECTOR
[2024-11-05 18:03] VITALS: BP 138/83; PULSE 91; RESP 18; TEMP 36.4; O2SAT 100
[2024-11-05] MEDS: ACETAMINOPHEN 500 MG TABLET 1000 MG PO (20:44)
[2024-11-05] MEDS: oxyCODONE HCL (*CRX) 5 MG TAB IR PO (20:45)
--- NOTE | 2024-11-05 22:39 | ED.BACK ---
HPI - Back Pain/Injury General Chief Complaint: Back Pain/Injury Stated Complaint: fall-whole back pain Time Seen by Provider: 11/05/24 18:27 Source: patient Mode of arrival: ambulatory Limitations: no limitations History of Present Illness HPI Narrative: Patient is a 59-year-old male who presents the ED with report of back pain. Patient reports he slipped and fell on ice around 7:30 a.m. this morning fell straight onto his back. States he fell backwards directly on to his back. He did hit his head. Denies LOC. Complains of pain to his neck and lower back. Patient reports a history of chronic back pain. Sees pain management. Is prescribed hydrocodone and Flexeril for home. He tried taking his pain medication at home but denied improvement. Pain continued to worsen throughout the day. Denies any CP, SOB, ABD pain, numbness, weakness, saddle anesthesia, bowel or bladder incontinence. Patient is on Eliquis due to history of AFib. Related Data Home Medications ?Medication ?Instructions ?Recorded ?Confirmed ?Last Taken ?Type albuterol sulfate 90 mcg/actuation 2 puff inhalation PRN 05/09/23 05/09/23 Unknown History aerosol inhaler apixaban 5 mg tablet (Eliquis) 5 mg PO DAILY 05/09/23 05/09/23 Unknown History atorvastatin 20 mg tablet 20 mg PO DAILY 05/09/23 05/09/23 Unknown History cyclobenzaprine 10 mg tablet 10 mg PO TID 05/09/23 05/09/23 Unknown History hydrocodone 10 mg-acetaminophen 10 tablet PO Q4H PRN Pain 05/09/23 05/09/23 Unknown History 325 mg tablet insulin glargine 100 unit/mL (3 30 unit subcut HS 05/09/23 05/09/23 Unknown History mL) subcutaneous pen (Basaglar KwikPen U-100 Insulin) lisinopril 10 mg tablet 10 mg PO DAILY 05/09/23 05/09/23 Unknown History metoprolol succinate 25 mg 25 mg PO DAILY 05/09/23 05/09/23 Unknown History tablet,extended release 24 hr nitroglycerin 0.4 mg sublingual 0.4 mg sublingual ONCE PRN Chest 05/09/23 05/09/23 Unknown History tablet Pain triamterene 75 75 tablet PO DAILY 05/09/23 05/09/23 Unknown History mg-hydrochlorothiazide 50 mg tablet Allergies Allergy/AdvReac Type Severity Reaction Status Date / Time No Known Allergies Allergy Unknown Verified 05/09/23 15:28 Review of Systems Review of Systems: All systems reviewed & are unremarkable except as noted in HPI. All systems reviewed & are unremarkable except as noted in HPI and below PMFSH Past Medical History Medical History Hyperlipidemia Atrial fibrillation Diabetes Hypertension Surgical History Surgical History H/O cardiac radiofrequency ablation Family History Family History Mother Cerebrovascular accident Heart attack AA (alcohol abuse) Father Heart attack MVA (motor vehicle accident) Social History Social History Social History: The patient lives with his significant other Selina justin is his durable power certified diabetes educator for healthcare. The patient was smoking a pack a cigarettes a day but has not smoked any in the last 10 days. He also drinks a couple drinks a day but has not drank any since he has felt ill. He does use marijuana. Patient has had 8-9 biological children but most of them were given up for adoption. The patient is . 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 Code status full code Smoking status: Current some day smoker Tobacco type: cigarettes Alcohol intake: former Substance use: current Substance use type: marijuana Last use: 05/08/23 Lack of Transportation: No Lack of Food: Never True Current Housing: I Have Housing Concerned About Future Housing: No Difficulty Paying Gas/Electric Bills: No Difficulty Paying for Meds: No Currently Unemployed: No Education: High School Diploma/GED Difficulty w/ Childcare or Family Care: No Spiritual care concerns: No Exam Narrative: GENERAL: Mildly uncomfortable appearing, obese with BMI of 31.4, non-toxic, in no acute distress. HEAD: Normocephalic, atraumatic. NECK: Tenderness to palpation along lower midline cervical region around C7. Mild swelling noted. No palpable bony deformities or step-offs. RESPIRATORY: Airway patent, respirations nonlabored. Clear to auscultation bilaterally, no rales, rhonchi, wheezing. CARDIOVASCULAR: Regular rate and rhythm without murmurs, rubs, or gallops. ABDOMINAL: Soft, nontender, nondistended. Normoactive BS. MUSCULOSKELETAL: Moves all extremities. No gross deformities. Mild tenderness to palpation along midthoracic region and into right-sided paraspinal musculature/medial scapular region. Tenderness to palpation diffusely throughout lumbar region. No palpable deformities or step-offs. Sensation intact. SKIN: Warm, dry, normal color. NEURO: A&O X3. Speech clear. Cranial nerves II-XII grossly intact. Steady gait. No ataxic movements. PSYCHIATRIC: Appropriate mood and affect. Normal interaction. Course Vital Signs Vital signs: Vital Signs Temperature 97.6 F 11/05/24 18:03 Pulse Rate 91 11/05/24 18:03 Respiratory Rate 18 11/05/24 18:03 Blood Pressure 138/83 11/05/24 18:03 Pulse Oximetry 100 11/05/24 18:03 Temperature 97.6 F 11/05/24 18:03 Pulse Rate 91 11/05/24 18:03 Respiratory Rate 18 11/05/24 18:03 Blood Pressure 138/83 11/05/24 18:03 Pulse Oximetry 100 11/05/24 18:03 MDM - Back Pain/Injury MDM Narrative Medical decision making narrative: Patient presented to ED status post trip and fall on ice complaining of pain to back. Positive head injury, no LOC. He is on Eliquis. Patient?s pain is positional and localized to paraspinal muscles without signs of cord compression or cauda equina. Normal neurologic exams. No red flag symptoms. CT brain and cervical spine negative. CT scan of thoracic and lumbar spine also without acute findings. Does show chronic transverse process fracture. Patient's pain was improved with supportive therapy in the ED. He ambulates with a steady gait and is felt to be a reasonable candidate for continued outpatient management. He has pain medication at home that he can continue to use. Recommended close follow-up with primary care doctor/painter and decorator for further evaluation. Given strict return precautions. He agrees with plan and feels comfortable going home. Discharged in stable condition. Medical Records Attestation: I reviewed the patient's medical records. Imaging Data Attestation: I personally reviewed and interpreted this imaging study as follows: Radiologist's impression: ITS Impressions Head CT 11/05/24 21:17 IMPRESSION: 1. No acute intracranial abnormality. Cervical Spine CT 11/05/24 21:24 IMPRESSION: 1. No acute abnormality of the cervical spine. Thoracic/Lumbar Spine CT 11/05/24 21:26 IMPRESSION: 1. No acute abnormality of the thoracic or lumbar spine. 2: Nondisplaced right L1 transverse process fracture, likely chronic given the sclerotic margins. 3: Mild spondylosis of the thoracic and lumbar spine. Discharge Plan Discharge Clinical Impression: Cervical strain Qualifiers: Encounter type: initial encounter Qualified Code(s): S16.1XXA - Strain of muscle, fascia and tendon at neck level, initial encounter Strain of lumbar region Qualifiers: Encounter type: initial encounter Qualified Code(s): S39.012A - Strain of muscle, fascia and tendon of lower back, initial encounter Fall due to ice or snow Qualifiers: Encounter type: initial encounter Qualified Code(s): W00.9XXA - Unspecified fall due to ice and snow, initial encounter Patient Disposition: Home, Self-Care Condition: Stable Instructions: Antibiotic Form, Cervical Strain (ED), Low Back Strain (ED), Acute Low Back Pain (ED) Additional Instructions: Your imaging did not show any evidence of fracture, however you may be sore over the next few days from your fall. Continue your home pain medication, Tylenol, muscle relaxers as needed for pain. Utilize ice/heat, lidocaine patches to areas of pain. Follow-up with your primary care doctor and painter and decorator for further evaluation if needed. Return to the ED if you experience recurrent fall or injury, worsening or severe pain, numbness in groin or legs, weakness in legs, going to the bathroom without any to, or any other symptoms of concern. Patient Language: Mohawk Prescriptions: New lidocaine 5 % adhesive patch,medicated 1 patch topical DAILY Qty: 15 0RF Rx Instructions: leave on most painful area for up to 12 hrs No Action cyclobenzaprine 10 mg tablet 10 mg PO TID atorvastatin 20 mg tablet 20 mg PO DAILY hydrocodone-acetaminophen 10-325 mg tablet 10 tablet PO Q4H PRN (Reason: Pain) lisinopril 10 mg tablet 10 mg PO DAILY nitroglycerin 0.4 mg tablet, sublingual 0.4 mg sublingual ONCE PRN (Reason: Chest Pain) triamterene-hydrochlorothiazid 75-50 mg tablet 75 tablet PO DAILY metoprolol succinate 25 mg tablet extended release 24 hr 25 mg PO DAILY albuterol sulfate 90 mcg/actuation HFA aerosol inhaler 2 puff INHALATION PRN insulin glargine [Basaglar KwikPen U-100 Insulin] 100 unit/mL (3 mL) insulin pen 30 unit SUBCUT HS Eliquis 5 mg tablet 5 mg PO DAILY polyethylene glycol 3350 [Miralax] 17 gram Powder In Packet 17 g PO QAM PRN (Reason: Constipation) Qty: 14 0RF sodium bicarbonate 650 mg Tablet 650 mg PO BID Qty: 30 0RF Follow-up/Referrals: GLENNA,LUPE SINGLETON [Primary Care Provider] - Time of Disposition: 22:43
[2024-11-05 23:16] VITALS: BP 133/80; PULSE 88; RESP 16; O2SAT 99
== END 2024-11-05 23:18 | disposition home or self-care (01) ==
PROVIDERS: Emergency Provider Physician Assistant; PCP Nurse Practitioner Family
DX: S39.012A Strain of muscle, fascia and tendon of lower back, initial encounter (principal); S16.1XXA Strain of muscle, fascia and tendon at neck level, initial encounter; I48.91 Unspecified atrial fibrillation; I10 Essential (primary) hypertension; E78.5 Hyperlipidemia, unspecified; E11.9 Type 2 diabetes mellitus without complications; F17.210 Nicotine dependence, cigarettes, uncomplicated; Z79.01 Long term (current) use of anticoagulants; Z79.4 Long term (current) use of insulin; Z79.899 Other long term (current) drug therapy; M47.816 Spondylosis without myelopathy or radiculopathy, lumbar region; M47.814 Spondylosis without myelopathy or radiculopathy, thoracic region; M84.48XA Pathological fracture, other site, initial encounter for fracture; W00.0XXA Fall on same level due to ice and snow, initial encounter
CPT/HCPCS: 70450; 72125; 72128; 72131; 99284; A9270

== ENCOUNTER 2025-04-14 15:56 | Observation (INO) | payer OTHER, SELFPAY ==
[2025-04-14] VITALS (9 sets, daily range): BP systolic 94–151; BP diastolic 57–119; PULSE 70–95; RESP 12–24; TEMP 36.3–36.7; O2SAT 96–100; BMI 27.8
--- NOTE | ~2025-04-14 | XR_ITS ---
CHEST RADIOGRAPH CLINICAL HISTORY: AMS/SYNCOPE . COMPARISON: 05/09/2023 TECHNIQUE: Single portable view of the chest. FINDINGS The cardiomediastinal silhouette is unremarkable. The lungs are clear. IMPRESSION: No focal infiltrate or effusion. Reviewed, dictated and finalized at location A.
--- NOTE | ~2025-04-14 | CT_ITS ---
History: Slurred speech PROCEDURE: CT head without contrast. COMPARISON: 11/05/2024 TECHNIQUE: Axial imaging of the head performed from the skull base to the vertex without IV contrast. Sagittal a nd coronal reformations obtained. DLP: 605 mGy-cm FINDINGS: The ventricles are normal in size, shape and position. There is no mass, mass effect or midline shift. There is no abnormal extra-axial fluid collection or intracranial hemorrhage. Visualized paranasal sinuses are clear. The mastoid air cells are well aerated. No acute displaced fractures within the overlying cranium. Impression: No acute intracranial hemorrhage or suspicious mass effect. Reviewed, dictated and finalized at location A. Impression: No acute intracranial hemorrhage or suspicious mass effect.
--- NOTE | 2025-04-14 16:04 | PC.NURSE ---
BG 150.
--- NOTE | 2025-04-14 16:05 | ECG_ITS ---
Test Date: 2025-04-14 17:16:33 Measurements Intervals [place] Rate: 72 P: 55 IN: 172 QRS: 69 QRSD: 90 T: 55 QT: 363 QTc: 399 Interpretive Statements SINUS RHYTHM NORMAL ECG No previous ECG available for comparison Electronically Signed On 04-14-2025 19:23:17 CDT by Hugo Bravo D.O.
[2025-04-14 16:07] LABS: Glucose Point of Care 150 mg/dl (65-105)
--- NOTE | 2025-04-14 16:08 | ED.GENADULT ---
HPI - General Adult General Chief complaint: Environmental Exposure <Dulce Gunn PA-C - Last Filed: 04/14/25 16:11> Stated complaint: working in heat, cant hold head up <Dulce Gunn PA-C - Last Filed: 04/14/25 16:11> Time Seen by Provider: 04/14/25 17:42 <Dulce Gunn PA-C - Last Filed: 04/14/25 16:11> Focused HPI: 59-year-old male presents emergency department with girlfriend at bedside with concerns for heat exhaustion. 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 States Sunday he was at his family member's baseball game and the following day started to develop generalized weakness, confusion and ?slurred speech? per his girlfriend. Patient states since then his symptoms have progressively worsened. He states he feels like he cannot hold his head up. He denies headache, vision changes, focal numbness or weakness, chest pain or shortness of breath, neck injury or trauma, abdominal pain, dysuria or hematuria, diarrhea. He was able the last have a bowel movement and urinate earlier this afternoon. GENERAL: Well-appearing, well-nourished, and in no acute distress. HEAD: Normocephalic, atraumatic. CHEST: Clear to auscultation. ?No respiratory distress. HEART: Regular rate and rhythm.? NEURO: ?Alert and oriented x3. Moving all extremities spontaneously Patient screened in triage and initial orders placed.? ?Additional care and disposition to be based upon?diagnostic testing and treatment. <Dulce Gunn PA-C - Last Filed: 04/14/25 16:11> Related Data Home medications: Home Medications ?Medication ?Instructions ?Recorded ?Confirmed ?Last Taken ?Type albuterol sulfate 90 mcg/actuation 2 puff inhalation PRN 05/09/23 05/09/23 Unknown History aerosol inhaler apixaban 5 mg tablet (Eliquis) 5 mg PO DAILY 05/09/23 05/09/23 Unknown History atorvastatin 20 mg tablet 20 mg PO DAILY 05/09/23 05/09/23 Unknown History cyclobenzaprine 10 mg tablet 10 mg PO TID 05/09/23 05/09/23 Unknown History hydrocodone 10 mg-acetaminophen 10 tablet PO Q4H PRN Pain 05/09/23 05/09/23 Unknown History 325 mg tablet insulin glargine 100 unit/mL (3 30 unit subcut HS 05/09/23 05/09/23 Unknown History mL) subcutaneous pen (Basaglar KwikPen U-100 Insulin) lisinopril 10 mg tablet 10 mg PO DAILY 05/09/23 05/09/23 Unknown History metoprolol succinate 25 mg 25 mg PO DAILY 05/09/23 05/09/23 Unknown History tablet,extended release 24 hr nitroglycerin 0.4 mg sublingual 0.4 mg sublingual ONCE PRN Chest 05/09/23 05/09/23 Unknown History tablet Pain triamterene 75 75 tablet PO DAILY 05/09/23 05/09/23 Unknown History mg-hydrochlorothiazide 50 mg tablet <Dulce Gunn PA-C - Last Filed: 04/14/25 16:11> Allergies/adverse reactions: Allergies Allergy/AdvReac Type Severity Reaction Status Date / Time No Known Allergies Allergy Unknown Verified 05/09/23 15:28 <Dulce Gunn PA-C - Last Filed: 04/14/25 16:11> Review of Systems Review of Systems: All systems reviewed & are unremarkable except as noted in HPI and below <Mahsa Parsons APRN - Last Filed: 04/14/25 21:21> [facility] Past Medical History Medical History: Medical History Hyperlipidemia Atrial fibrillation Diabetes Hypertension <Dulce Gunn PA-C - Last Filed: 04/14/25 16:11> Surgical History Surgical History: Surgical History H/O cardiac radiofrequency ablation <Dulce Gunn PA-C - Last Filed: 04/14/25 16:11> Family History Family History: Family History Mother Cerebrovascular accident Heart attack AA (alcohol abuse) Father Heart attack MVA (motor vehicle accident) <Dulce Gunn PA-C - Last Filed: 04/14/25 16:11> Social History Social History: Social History Social History: The patient lives with his significant other Selina justin is his durable power compliance attorney for healthcare. The patient was smoking a pack a cigarettes a day but has not smoked any in the last 10 days. He also drinks a couple drinks a day but has not drank any since he has felt ill. He does use marijuana. Patient has had 8-9 biological children but most of them were given up for adoption. The patient is . 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 Code status full code Smoking status: Current some day smoker Tobacco type: cigarettes Alcohol intake: former Substance use: current Substance use type: marijuana Last use: 05/08/23 Lack of Transportation: No Lack of Food: Never True Current Housing: I Have Housing Concerned About Future Housing: No Difficulty Paying Gas/Electric Bills: No Difficulty Paying for Meds: No Currently Unemployed: No Education: High School Diploma/GED Difficulty w/ Childcare or Family Care: No Spiritual care concerns: No <Dulce Gunn PA-C - Last Filed: 04/14/25 16:11> Exam Narrative: GENERAL: Well appearing, well-nourished, non-toxic, in no acute distress. HEAD: Normocephalic, atraumatic. NECK: Supple. No adenopathy, no masses. RESPIRATORY: Airway patent, respirations nonlabored. Clear to auscultation bilaterally, no rales, rhonchi, wheezing. CARDIOVASCULAR: Regular rate and rhythm without murmurs, rubs, or gallops. Peripheral pulses 2+ and equal bilaterally. ABDOMINAL: Soft, nontender, nondistended, no hepatosplenomegaly. Normoactive BS. MUSCULOSKELETAL: Moves all extremities. Strength/ROM intact without gross deformities. SKIN: Warm, dry, normal color. No rashes. NEURO: A&O X3. Speech clear. Cranial nerves II-XII intact. No ataxic movements. PSYCHIATRIC: Appropriate mood and affect. Normal interaction. <Mahsa Parsons APRN - Last Filed: 04/14/25 21:21> Course Vital Signs Vital signs: Vital Signs Temperature 98.0 F 04/14/25 15:59 Pulse Rate 91 04/14/25 15:59 Respiratory Rate 18 04/14/25 15:59 Blood Pressure 151/119 H 04/14/25 15:59 Pulse Oximetry 96 04/14/25 15:59 Temperature 98.0 F 04/14/25 15:59 Pulse Rate 80 04/14/25 20:20 Respiratory Rate 18 04/14/25 20:20 Blood Pressure 107/59 L 04/14/25 20:20 Pulse Oximetry 96 04/14/25 20:20 <Dulce Gunn PA-C - Last Filed: 04/14/25 16:11> Vital Signs Temperature 98.0 F 04/14/25 15:59 Pulse Rate 91 04/14/25 15:59 Respiratory Rate 18 04/14/25 15:59 Blood Pressure 151/119 H 04/14/25 15:59 Pulse Oximetry 96 04/14/25 15:59 Temperature 98.0 F 04/14/25 15:59 Pulse Rate 80 04/14/25 20:20 Respiratory Rate 18 04/14/25 20:20 Blood Pressure 107/59 L 04/14/25 20:20 Pulse Oximetry 96 04/14/25 20:20 <Mahsa Parsons APRN - Last Filed: 04/14/25 21:21> Medical Decision Making MDM Narrative Medical decision making narrative: 59-year-old male presents emergency department with girlfriend at bedside with concerns for heat exhaustion. 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 States Sunday he was at his family member's baseball game and the following day started to develop generalized weakness, confusion and ?slurred speech? per his girlfriend. Patient states since then his symptoms have progressively worsened. He states he feels like he cannot hold his head up. He denies headache, vision changes, focal numbness or weakness, chest pain or shortness of breath, neck injury or trauma, abdominal pain, dysuria or hematuria, diarrhea. He was able to urinate earlier this afternoon. Labs Ordered: CBC, CMP, UA, UDS, PTT, INR, lactic acid, CK, troponin, TSH, ethanol Imaging Ordered: CT brain Medications Ordered: 2 L normal saline IV bolus, 2 L LR IV bolus Results: Patient's CT brain indicates the ventricles are normal in size, shape and position. There is no mass, mass effect or midline shift. There is no abnormal extra-axial fluid collection or intracranial hemorrhage. Visualized paranasal sinuses are clear. The mastoid air cells are well aerated. No acute displaced fractures within the overlying cranium. Patient's chest x-ray indicates The cardiomediastinal silhouette is unremarkable. The lungs are clear. Diagnosis: Rhabdomyolysis, acute kidney injury Patient Education/Shared MDM: Results of lab work and imaging shared with patient. He was advised patient be admitted to the hospital for further treatment and evaluation. Patient denies his significant other verbalized understanding and are in agreement with plan. He will be admitted under observation status. Spoke with Dr. Saleh, who is in agreement with plan for admission. He will be admitted to the med/surg floor. <Mahsa Parsons APRN - Last Filed: 04/14/25 21:21> Differential Diagnosis Differential Diagnosis: Rhabdomyolysis, acute kidney injury, dehydration <Mahsa Parsons MACHINES TECHNICIAN - Last Filed: 04/14/25 21:21> Vital Signs Vital Signs: Vital Signs Temperature 98.0 F 04/14/25 15:59 Pulse Rate 91 04/14/25 15:59 Respiratory Rate 18 04/14/25 15:59 Blood Pressure 151/119 H 04/14/25 15:59 Pulse Oximetry 96 04/14/25 15:59 Temperature 98.0 F 04/14/25 15:59 Pulse Rate 80 04/14/25 20:20 Respiratory Rate 18 04/14/25 20:20 Blood Pressure 107/59 L 04/14/25 20:20 Pulse Oximetry 96 04/14/25 20:20 <Dulce Gunn PA-C - Last Filed: 04/14/25 16:11> Vital Signs Temperature 98.0 F 04/14/25 15:59 Pulse Rate 91 04/14/25 15:59 Respiratory Rate 18 04/14/25 15:59 Blood Pressure 151/119 H 04/14/25 15:59 Pulse Oximetry 96 04/14/25 15:59 Temperature 98.0 F 04/14/25 15:59 Pulse Rate 80 04/14/25 20:20 Respiratory Rate 18 04/14/25 20:20 Blood Pressure 107/59 L 04/14/25 20:20 Pulse Oximetry 96 04/14/25 20:20 <Mahsa Parsons APRN - Last Filed: 04/14/25 21:21> Lab Data Lab results reviewed: Yes I reviewed the patient's lab results. <Mahsa Parsons APRN - Last Filed: 04/14/25 21:21> Result diagrams: 04/14/25 17:31 04/14/25 17:31 <Dulce Gnun PA-C - Last Filed: 04/14/25 16:11> Labs: Lab Results 04/14/25 04/14/25 04/14/25 Range/Units 16:04 17:31 17:51 WBC 8.4 (4.5-10.0) K/mm3 RBC 4.24 L (4.6-6.20) M/mm3 Hgb 12.9 L (14.0-18.0) g/dL Hct 39.7 L (42.0-52.0) % MCV 93.6 (80-100) fl MCH 30.4 (26-34) pg MCHC 32.5 (32-36) g/dl RDW 13.7 (11.5-14.5) % Plt Count 163 (150-375) k/mm3 MPV 10.1 (7.4-10.4) fl Immature Gran % (Auto) 0.2 (0-0.5) % Neut % (Auto) 70.0 (45.5-73.1) % Lymph % (Auto) 18.0 L (18.3-44.2) % Hidalgo % (Auto) 9.4 H (2.6-8.5) % Eos % (Auto) 1.9 (0-4.4) % Baso % (Auto) 0.5 (0.2-1.2) % Lymph # (Auto) 1.51 (0.9-3.2) K/mm3 [place] # (Auto) 0.8 H (0.1-0.6) K/mm3 Eos # (Auto) 0.2 (0-0.3) K/mm3 Baso # (Auto) 0.0 (0.0-0.1) K/mm3 Abs Immat Gran (auto) 0.02 (0.00-0.031) K/mm3 Absolute Neuts (auto) 5.9 (1.3-6.7) K/mm3 Absolute Nucleated RBC 0.000 (0.0-0.012) K/mm3 Nucleated RBC % 0.0 (0.0-0.2) % PT 20.2 H (11.1-14.7) Seconds INR 1.8 APTT 29.6 (22.3-36.8) Seconds Sodium 136 L (137-145) mmol/L Potassium 4.6 (3.4-5.0) mmol/L Chloride 111 H (98-107) mmol/L Carbon Dioxide 13 L (22-30) mmol/L Anion Gap 12 (4-12) mmol/L BUN 56 H D (9-20) mg/dL Creatinine 3.33 H (0.7-1.3) mg/dL Estim Creat Clear Calc Not Reportable Estimated GFR 19 L (59 - ) Glucose 115 H (65-110) mg/dL POC Capillary Glucose 150 H (65-105) mg/dl Lactic Acid 0.7 (0.7-2.0) mmol/L Calcium 9.4 (8.4-10.2) mg/dL Total Bilirubin 0.6 (0.2-1.3) mg/dL AST 104 H (17-59) U/L ALT 49 (6-50) U/L Alkaline Phosphatase 60 (38-126) U/L Total Creatine Kinase 2107 H (55-170) U/L Troponin I < 0.012 (0.000-0.034) ng/mL Total Protein 7.4 (6.3-8.2) g/dL Albumin 4.2 (3.5-5.1) g/dL TSH 0.234 L (0.465-4.680) uIU/mL Urine Color (Yellow) Urine Appearance (Clear) Urine pH (5.0-9.0) Ur Specific Pauline (1.001-1.035) Urine Protein (Negative) mg/dL Urine Glucose (UA) (Negative) mg/dL Urine Ketones (Negative) mg/dL Ur Blood (Man) (Negative) Urine Nitrate (Negative) Urine Bilirubin (Negative) Urine Urobilinogen (<2.0) mg/dL Leukocyte Esterase Rfl (Negative) PARKER/UL Urine RBC (0-2) /hpf Urine WBC (0-3) /hpf Ur Squamous Epith Cells (Few) /hpf Urine Bacteria /hpf Urine Casts Urine Opiates Screen (Negative) Urine Methadone Screen (Negative) Ur Barbiturates Screen (Negative) Ur Phencyclidine Scrn (Negative) Ur Amphetamine Screen (Negative) U Benzodiazepines Scrn (Negative) Urine Cocaine Screen (Negative) U Cannabinoids Screen (Negative) Ethyl Alcohol < 10 (<10) mg/dL 04/14/25 Range/Units 19:15 WBC (4.5-10.0) K/mm3 RBC (4.6-6.20) M/mm3 Hgb (14.0-18.0) g/dL Hct (42.0-52.0) % MCV (80-100) fl MCH (26-34) pg MCHC (32-36) g/dl RDW (11.5-14.5) % Plt Count (150-375) k/mm3 MPV (7.4-10.4) fl Immature Gran % (Auto) (0-0.5) % Neut % (Auto) (45.5-73.1) % Lymph % (Auto) (18.3-44.2) % Hidalgo % (Auto) (2.6-8.5) % Eos % (Auto) (0-4.4) % Baso % (Auto) (0.2-1.2) % Lymph # (Auto) (0.9-3.2) K/mm3 Hidalgo # (Auto) (0.1-0.6) K/mm3 Eos # (Auto) (0-0.3) K/mm3 Baso # (Auto) (0.0-0.1) K/mm3 Abs Immat Gran (auto) (0.00-0.031) K/mm3 Absolute Neuts (auto) (1.3-6.7) K/mm3 Absolute Nucleated RBC (0.0-0.012) K/mm3 Nucleated RBC % (0.0-0.2) % PT (11.1-14.7) Seconds INR APTT (22.3-36.8) Seconds Sodium (137-145) mmol/L Potassium (3.4-5.0) mmol/L Chloride (98-107) mmol/L Carbon Dioxide (22-30) mmol/L Anion Gap (4-12) mmol/L BUN (9-20) mg/dL Creatinine (0.7-1.3) mg/dL Estim Creat Clear Calc Estimated GFR (59 - ) Glucose (65-110) mg/dL POC Capillary Glucose (65-105) mg/dl Lactic Acid (0.7-2.0) mmol/L Calcium (8.4-10.2) mg/dL Total Bilirubin (0.2-1.3) mg/dL AST (17-59) U/L ALT (6-50) U/L Alkaline Phosphatase (38-126) U/L Total Creatine Kinase (55-170) U/L Troponin I (0.000-0.034) ng/mL Total Protein (6.3-8.2) g/dL Albumin (3.5-5.1) g/dL TSH (0.465-4.680) uIU/mL Urine Color Yellow (Yellow) Urine Appearance Clear (Clear) Urine pH 6.5 (5.0-9.0) Ur Specific Pauline 1.018 (1.001-1.035) Urine Protein 1+ H (Negative) mg/dL Urine Glucose (UA) Negative (Negative) mg/dL Urine Ketones Negative (Negative) mg/dL Ur Blood (Man) Negative (Negative) Urine Nitrate Negative (Negative) Urine Bilirubin Negative (Negative) Urine Urobilinogen 1.0 (<2.0) mg/dL Leukocyte Esterase Rfl Trace H (Negative) PARKER/UL Urine RBC 0-2 (0-2) /hpf Urine WBC 0-5 (0-3) /hpf Ur Squamous Epith Cells None seen (Few) /hpf Urine Bacteria None seen /hpf Urine Casts 3-5 Urine Opiates Screen Positive A (Negative) Urine Methadone Screen Negative (Negative) Ur Barbiturates Screen Negative (Negative) Ur Phencyclidine Scrn Negative (Negative) Ur Amphetamine Screen Negative (Negative) U Benzodiazepines Scrn Positive A (Negative) Urine Cocaine Screen Negative (Negative) U Cannabinoids Screen Positive A (Negative) Ethyl Alcohol (<10) mg/dL <Dulce Gunn PA-C - Last Filed: 04/14/25 16:11> Lab Results 04/14/25 04/14/25 04/14/25 Range/Units 16:04 17:31 17:51 WBC 8.4 (4.5-10.0) K/mm3 RBC 4.24 L (4.6-6.20) M/mm3 Hgb 12.9 L (14.0-18.0) g/dL Hct 39.7 L (42.0-52.0) % MCV 93.6 (80-100) fl MCH 30.4 (26-34) pg MCHC 32.5 (32-36) g/dl RDW 13.7 (11.5-14.5) % Plt Count 163 (150-375) k/mm3 MPV 10.1 (7.4-10.4) fl Immature Gran % (Auto) 0.2 (0-0.5) % Neut % (Auto) 70.0 (45.5-73.1) % Lymph % (Auto) 18.0 L (18.3-44.2) % Hidalgo % (Auto) 9.4 H (2.6-8.5) % Eos % (Auto) 1.9 (0-4.4) % Baso % (Auto) 0.5 (0.2-1.2) % Lymph # (Auto) 1.51 (0.9-3.2) K/mm3 [place]go # (Auto) 0.8 H (0.1-0.6) K/mm3 Eos # (Auto) 0.2 (0-0.3) K/mm3 Baso # (Auto) 0.0 (0.0-0.1) K/mm3 Abs Immat Gran (auto) 0.02 (0.00-0.031) K/mm3 Absolute Neuts (auto) 5.9 (1.3-6.7) K/mm3 Absolute Nucleated RBC 0.000 (0.0-0.012) K/mm3 Nucleated RBC % 0.0 (0.0-0.2) % PT 20.2 H (11.1-14.7) Seconds INR 1.8 APTT 29.6 (22.3-36.8) Seconds Sodium 136 L (137-145) mmol/L Potassium 4.6 (3.4-5.0) mmol/L Chloride 111 H (98-107) mmol/L Carbon Dioxide 13 L (22-30) mmol/L Anion Gap 12 (4-12) mmol/L BUN 56 H D (9-20) mg/dL Creatinine 3.33 H (0.7-1.3) mg/dL Estim Creat Clear Calc Not Reportable Estimated GFR 19 L (59 - ) Glucose 115 H (65-110) mg/dL POC Capillary Glucose 150 H (65-105) mg/dl Lactic Acid 0.7 (0.7-2.0) mmol/L Calcium 9.4 (8.4-10.2) mg/dL Total Bilirubin 0.6 (0.2-1.3) mg/dL AST 104 H (17-59) U/L ALT 49 (6-50) U/L Alkaline Phosphatase 60 (38-126) U/L Total Creatine Kinase 2107 H (55-170) U/L Troponin I < 0.012 (0.000-0.034) ng/mL Total Protein 7.4 (6.3-8.2) g/dL Albumin 4.2 (3.5-5.1) g/dL TSH 0.234 L (0.465-4.680) uIU/mL Urine Color (Yellow) Urine Appearance (Clear) Urine pH (5.0-9.0) Ur Specific Pauline (1.001-1.035) Urine Protein (Negative) mg/dL Urine Glucose (UA) (Negative) mg/dL Urine Ketones (Negative) mg/dL Ur Blood (Man) (Negative) Urine Nitrate (Negative) Urine Bilirubin (Negative) Urine Urobilinogen (<2.0) mg/dL Leukocyte Esterase Rfl (Negative) PARKER/UL Urine RBC (0-2) /hpf Urine WBC (0-3) /hpf Ur Squamous Epith Cells (Few) /hpf Urine Bacteria /hpf Urine Casts Urine Opiates Screen (Negative) Urine Methadone Screen (Negative) Ur Barbiturates Screen (Negative) Ur Phencyclidine Scrn (Negative) Ur Amphetamine Screen (Negative) U Benzodiazepines Scrn (Negative) Urine Cocaine Screen (Negative) U Cannabinoids Screen (Negative) Ethyl Alcohol < 10 (<10) mg/dL 04/14/ Range/Units 19:15 WBC (4.5-10.0) K/mm3 RBC (4.6-6.20) M/mm3 Hgb (14.0-18.0) g/dL Hct (42.0-52.0) % MCV (80-100) fl MCH (26-34) pg MCHC (32-36) g/dl RDW (11.5-14.5) % Plt Count (150-375) k/mm3 MPV (7.4-10.4) fl Immature Gran % (Auto) (0-0.5) % Neut % (Auto) (45.5-73.1) % Lymph % (Auto) (18.3-44.2) % Hidalgo % (Auto) (2.6-8.5) % Eos % (Auto) (0-4.4) % Baso % (Auto) (0.2-1.2) % Lymph # (Auto) (0.9-3.2) K/mm3 H[place]go # (Auto) (0.1-0.6) K/mm3 Eos # (Auto) (0-0.3) K/mm3 Baso # (Auto) (0.0-0.1) K/mm3 Abs Immat Gran (auto) (0.00-0.031) K/mm3 Absolute Neuts (auto) (1.3-6.7) K/mm3 Absolute Nucleated RBC (0.0-0.012) K/mm3 Nucleated RBC % (0.0-0.2) % PT (11.1-14.7) Seconds INR APTT (22.3-36.8) Seconds Sodium (137-145) mmol/L Potassium (3.4-5.0) mmol/L Chloride (98-107) mmol/L Carbon Dioxide (22-30) mmol/L Anion Gap (4-12) mmol/L BUN (9-20) mg/dL Creatinine (0.7-1.3) mg/dL Estim Creat Clear Calc Estimated GFR (59 - ) Glucose (65-110) mg/dL POC Capillary Glucose (65-105) mg/dl Lactic Acid (0.7-2.0) mmol/L Calcium (8.4-10.2) mg/dL Total Bilirubin (0.2-1.3) mg/dL AST (17-59) U/L ALT (6-50) U/L Alkaline Phosphatase (38-126) U/L Total Creatine Kinase (55-170) U/L Troponin I (0.000-0.034) ng/mL Total Protein (6.3-8.2) g/dL Albumin (3.5-5.1) g/dL TSH (0.465-4.680) uIU/mL Urine Color Yellow (Yellow) Urine Appearance Clear (Clear) Urine pH 6.5 (5.0-9.0) Ur Specific Pauline 1.018 (1.001-1.035) Urine Protein 1+ H (Negative) mg/dL Urine Glucose (UA) Negative (Negative) mg/dL Urine Ketones Negative (Negative) mg/dL Ur Blood (Man) Negative (Negative) Urine Nitrate Negative (Negative) Urine Bilirubin Negative (Negative) Urine Urobilinogen 1.0 (<2.0) mg/dL Leukocyte Esterase Rfl Trace H (Negative) PARKER/UL Urine RBC 0-2 (0-2) /hpf Urine WBC 0-5 (0-3) /hpf Ur Squamous Epith Cells None seen (Few) /hpf Urine Bacteria None seen /hpf Urine Casts 3-5 Urine Opiates Screen Positive A (Negative) Urine Methadone Screen Negative (Negative) Ur Barbiturates Screen Negative (Negative) Ur Phencyclidine Scrn Negative (Negative) Ur Amphetamine Screen Negative (Negative) U Benzodiazepines Scrn Positive A (Negative) Urine Cocaine Screen Negative (Negative) U Cannabinoids Screen Positive A (Negative) Ethyl Alcohol (<10) mg/dL <Mahsa Parsons APRN - Last Filed: 04/14/25 21:21> Imaging Data Attestation: I personally reviewed and interpreted this imaging study as follows: <Mahsa Parsons APRN - Last Filed: 04/14/25 21:21> Radiologist's impression: Impressions Head CT 04/14/25 16:32 Impression: No acute intracranial hemorrhage or suspicious mass effect. Chest X-Ray 04/14/25 16:37 IMPRESSION: No focal infiltrate or effusion. <Mahsa Parsons APRN - Last Filed: 04/14/25 21:21> Discharge Plan Discharge Clinical Impression: Acute kidney injury, Rhabdomyolysis <Dulce Gunn PA-C - Last Filed: 04/14/25 16:11> Patient Disposition: Still a Patient <Dulce Gunn PA-C - Last Filed: 04/14/25 16:11> Condition: Stable <Dulce Gunn PA-C - Last Filed: 04/14/25 16:11> Patient Language: Estonian <Dulce Gunn PA-C - Last Filed: 04/14/25 16:11> Prescriptions: No Action cyclobenzaprine 10 mg tablet 10 mg PO TID atorvastatin 20 mg tablet 20 mg PO DAILY hydrocodone-acetaminophen 10-325 mg tablet 10 tablet PO Q4H PRN (Reason: Pain) lisinopril 10 mg tablet 10 mg PO DAILY nitroglycerin 0.4 mg tablet, sublingual 0.4 mg sublingual ONCE PRN (Reason: Chest Pain) triamterene-hydrochlorothiazid 75-50 mg tablet 75 tablet PO DAILY metoprolol succinate 25 mg tablet extended release 24 hr 25 mg PO DAILY albuterol sulfate 90 mcg/actuation HFA aerosol inhaler 2 puff INHALATION PRN insulin glargine [Basaglar KwikPen U-100 Insulin] 100 unit/mL (3 mL) insulin pen 30 unit SUBCUT HS Eliquis 5 mg tablet 5 mg PO DAILY polyethylene glycol 3350 [Miralax] 17 gram Powder In Packet 17 g PO QAM PRN (Reason: Constipation) Qty: 14 0RF sodium bicarbonate 650 mg Tablet 650 mg PO BID Qty: 30 0RF lidocaine 5 % adhesive patch,medicated 1 patch topical DAILY Qty: 15 0RF Rx Instructions: leave on most painful area for up to 12 hrs <Dulce Gunn PA-C - Last Filed: 04/14/25 16:11> Follow-up/Referrals: GLENNA,LUPE SINGLETON [Primary Care Provider] - <Dulce Gunn PA-C - Last Filed: 04/14/25 16:11>
[2025-04-14 17:47] LABS: Basophils Percent Auto 0.5 % (0.2-1.2); Eosinophils Absolute Auto 0.2 K/mm3 (0-0.3); Eosinophils Percent Auto 1.9 % (0-4.4); Hematocrit 39.7 % (42.0-52.0); Hemoglobin 12.9 g/dL (14.0-18.0); Immature Granulocyte Absolute 0.02 K/mm3 (0.00-0.031); Immature Granulocyte Percent A 0.2 % (0-0.5); Lymphocytes Absolute Auto 1.51 K/mm3 (0.9-3.2); Mean Corpuscular HGB Conc 32.5 g/dl (32-36); Mean Corpuscular Hemoglobin 30.4 pg (26-34); Mean Corpuscular Volume 93.6 fl (80-100); Mean Platelet Volume 10.1 fl (7.4-10.4); Monocytes Absolute Auto 0.8 K/mm3 (0.1-0.6); Monocytes Percent Auto 9.4 % (2.6-8.5); Neutrophils Absolute Auto 5.9 K/mm3 (1.3-6.7); Platelet Count Result 163 k/mm3 (150-375); Red Blood Count 4.24 M/mm3 (4.6-6.20); Red Cell Distribution Width 13.7 % (11.5-14.5); White Blood Count 8.4 K/mm3 (4.5-10.0)
[2025-04-14] MEDS: SODIUM CHLORIDE 0.9% IV 1,000 ML 999 ML IV CONT ×2 (17:49→20:06)
[2025-04-14 17:56] LABS: Alanine Aminotransferase 49 U/L (6-50); Albumin Level 4.2 g/dL (3.5-5.1); Alkaline Phosphatase 60 U/L (38-126); Anion Gap 12 mmol/L (4-12); Aspartate Amino Transferase 104 U/L (17-59); Bilirubin,Total 0.6 mg/dL (0.2-1.3); Blood Urea Nitrogen 56 mg/dL (9-20); Calcium 9.4 mg/dL (8.4-10.2); Carbon Dioxide 13 mmol/L (22-30); Chloride 111 mmol/L (98-107); Estimated Glomerular Filt Rate 19; Ethanol < 10 mg/dL (<10); Glucose 115 mg/dL (65-110); INR 1.8; Potassium 4.6 mmol/L (3.4-5.0); Prothrombin Time 20.2 Seconds (11.1-14.7); Sodium 136 mmol/L (137-145); Total Protein 7.4 g/dL (6.3-8.2)
[2025-04-14 17:57] LABS: Partial Thromboplastin Time 29.6 Seconds (22.3-36.8)
[2025-04-14 18:09] LABS: Troponin I < 0.012 ng/mL (0.000-0.034)
[2025-04-14 18:24] LABS: Lactic Acid Reflex 0.7 mmol/L (0.7-2.0)
[2025-04-14 18:27] LABS: Thyroid Stimulating Hormone 0.234 uIU/mL (0.465-4.680)
[2025-04-14 19:32] LABS: Add Urine Microscopic? YES; Appearance Urine Clear (Clear); Bacteria Urine None Seen /hpf; Bilirubin Urine Negative (Negative); Blood Urine Negative (Negative); Color Urine Yellow (Yellow); Glucose Urine UA Negative (Negative); Ketones Urine Negative (Negative); Leukocyte Esterase Ur Trace LEU/UL (Negative); Nitrate Urine Negative (Negative); Protein Urine 1+ mg/dL (Negative); RBC Urine 0-2 /hpf (0-2); Specific Grav Ur 1.018 (1.001-1.035); Squamous Epithelial Cell Urine None Seen /hpf (Few); WBC Urine 0-5 /hpf (0-3); pH Urine 6.5 (5.0-9.0)
--- NOTE | 2025-04-14 19:43 | PC.NURSE ---
Per KAMERON Braswell, pt states he wants to try and empty his bladder on his own one more time before we attempt catheter.
[2025-04-14 19:52] LABS: Amphetamine Screen Urine Negative (Negative); Barbiturate Screen Urine Negative (Negative); Benzodiazepines Screen Urine Positive (Negative); Cannabinoid Screen Urine Positive (Negative); Cocaine Screen Urine Negative (Negative); Methadone Screen Urine Negative (Negative); Opiate Screen Urine Positive (Negative); Phencyclidine Screen Urine Negative (Negative)
[2025-04-14 20:19] LABS: Creatine Kinase 2107 U/L (55-170)
[2025-04-14] MEDS: LACTATED RINGERS 1,000 ML 999 ML IV CONT ×2 (21:10)
--- NOTE | 2025-04-14 23:38 | ADMGEN ---
This patient, Robert Tse, was admitted to [address] [place] [address] Room 315-02 at 23:15. Patient/family oriented to hospital policies and general routines including ID bracelet, bed and alarms, visiting hours, pain management, procedures, bathroom and other care routines, personal items, smoking policy, room service/diet, and visiting hours. Information on how to activate the Rapid Response Team has been discussed. Patient/Family are encouraged to report perceived risks to care and to ask questions if they do not understand what they are told or what they should do.
[2025-04-14 23:56] LABS: Glucose Point of Care 114 mg/dl (65-105)
[2025-04-14] MEDS: LACTATED RINGERS 1,000 ML 125 ML IV CONT (23:57)
[2025-04-15 05:54] VITALS: BP 105/64; PULSE 90; RESP 18; TEMP 36.7; O2SAT 96
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
[2025-04-15] MEDS: HYDROcodone/acetaminophen (*CRX) 10-325 MG TABLET 1 TAB PO ×3 (06:48→21:23)
[2025-04-15 07:39] LABS: Glucose Point of Care 120 mg/dl (65-105)
[2025-04-15] MEDS: LACTATED RINGERS 1,000 ML 200 ML IV CONT ×3 (08:30→22:20)
[2025-04-15 08:37] LABS: Hematocrit 33.9 % (42.0-52.0); Mean Corpuscular HGB Conc 32.4 g/dl (32-36); Mean Corpuscular Hemoglobin 30.6 pg (26-34); Mean Corpuscular Volume 94.2 fl (80-100); Mean Platelet Volume 9.7 fl (7.4-10.4); Platelet Count Result 133 k/mm3 (150-375); Red Cell Distribution Width 13.3 % (11.5-14.5); White Blood Count 4.1 K/mm3 (4.5-10.0)
[2025-04-15 08:55] LABS: Albumin Level 3.3 g/dL (3.5-5.1); Anion Gap 7 mmol/L (4-12); Blood Urea Nitrogen 28 mg/dL (9-20); Calcium 9.1 mg/dL (8.4-10.2); Carbon Dioxide 17 mmol/L (22-30); Chloride 115 mmol/L (98-107); Creatine Kinase 694 U/L (55-170); Estimated CRCL calculation 81 ml/min; Estimated Glomerular Filt Rate > 60; Glucose 112 mg/dL (65-110); Phosphorus 2.8 mg/dL (2.5-4.5); Potassium 3.9 mmol/L (3.4-5.0); Sodium 139 mmol/L (137-145)
[2025-04-15] MEDS: GABAPENTIN 300 MG CAPSULE PO ×2 (09:51→17:42)
[2025-04-15] MEDS: APIXABAN 2.5 MG TABLET PO ×2 (09:51→21:18)
[2025-04-15 11:58] LABS: Glucose Point of Care 111 mg/dl (65-105)
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
[2025-04-15 13:41] VITALS: PULSE 72
[2025-04-15] MEDS: METOPROLOL SUCCINATE EXT REL 25 MG TABCR PO (13:41)
[2025-04-15 14:00] VITALS: BP 128/70; PULSE 89; RESP 16; TEMP 36.3; O2SAT 100
[2025-04-15 16:10] LABS: Glucose Point of Care 107 mg/dl (65-105)
--- NOTE | 2025-04-15 19:25 | PC.NURSE ---
On 04/15/25, the C D STRIPPER, Paulina Wiggins, provided care and completed [employer] documentation on this patient. I have reviewed the C D STRIPPER's documentation and agree with the findings.
[2025-04-15 20:43] LABS: Glucose Point of Care 131 mg/dl (65-105)
[2025-04-15 20:50] LABS: Glucose Point of Care 126 mg/dl (65-105)
[2025-04-15 21:04] VITALS: BP 126/71; PULSE 86; RESP 20; TEMP 36.6; O2SAT 98
[2025-04-15] MEDS: INSULIN GLARGINE (*BKC) 100 UNITS/ML 20 UNITS SUB-Q (21:18)
[2025-04-15 23:58] LABS: Glucose Point of Care 106 mg/dl (65-105)
[2025-04-16] MEDS: HYDROcodone/acetaminophen (*CRX) 10-325 MG TABLET 1 TAB PO ×4 (01:19→14:23)
--- NOTE | 2025-04-16 03:29 | PC.NURSE ---
On 04/16/25, the Graduate Nurse, Ami, provided care and completed [employer] documentation on this patient with this nurse available for question/assistance at side. I have reviewed the Ami's documentation and agree with the findings.
[2025-04-16] MEDS: LACTATED RINGERS 1,000 ML 200 ML IV CONT ×2 (04:39→09:30)
[2025-04-16 06:00] VITALS: BP 144/75; PULSE 86; RESP 20; TEMP 35.9; O2SAT 98
[2025-04-16 07:47] LABS: Glucose Point of Care 101 mg/dl (65-105)
[2025-04-16 09:55] VITALS: PULSE 86
[2025-04-16] MEDS: GABAPENTIN 300 MG CAPSULE PO (09:55)
[2025-04-16] MEDS: APIXABAN 2.5 MG TABLET PO (09:55)
[2025-04-16] MEDS: METOPROLOL SUCCINATE EXT REL 25 MG TABCR PO (09:55)
[2025-04-16 10:36] LABS: Anion Gap 6 mmol/L (4-12); Blood Urea Nitrogen 16 mg/dL (9-20); Calcium 8.9 mg/dL (8.4-10.2); Carbon Dioxide 21 mmol/L (22-30); Chloride 111 mmol/L (98-107); Estimated CRCL calculation 110 ml/min; Estimated Glomerular Filt Rate > 60; Glucose 128 mg/dL (65-110); Potassium 3.5 mmol/L (3.4-5.0); Sodium 138 mmol/L (137-145)
[2025-04-16 11:14] LABS: Glucose Point of Care 115 mg/dl (65-105)
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
[2025-04-16 13:54] VITALS: BP 143/77; PULSE 80; RESP 14; TEMP 36.3; O2SAT 98
[2025-04-16] MEDS: POTASSIUM CHLORIDE 20 MEQ PACKET (FOR LIQUID) 40 MEQ PO (14:19)
--- NOTE | 2025-04-16 15:15 | PC.NURSE ---
On 04/16/25, the TAIL PULLER, Paulina Wiggins, provided care and completed [employer] documentation on this patient. I have reviewed the TAIL PULLER's documentation and agree with the findings.
== END 2025-04-16 15:15 | disposition home or self-care (01) ==
LOC: ANHED 21:21 → ANH3MEDSUR 21:45
PROVIDERS: Physician Assistant; Admitting Provider Internal Medicine; Emergency Provider Registered Nurse; PCP Nurse Practitioner Family; Visit Provider Internal Medicine
DX: T67.8XXA Other effects of heat and light, initial encounter (principal); N17.9 Acute kidney failure, unspecified; M62.82 Rhabdomyolysis; E86.0 Dehydration; I95.9 Hypotension, unspecified; E11.42 Type 2 diabetes mellitus with diabetic polyneuropathy; I48.0 Paroxysmal atrial fibrillation; I25.10 Atherosclerotic heart disease of native coronary artery without angina pectoris; M54.9 Dorsalgia, unspecified; G89.29 Other chronic pain; E78.5 Hyperlipidemia, unspecified; I10 Essential (primary) hypertension; F17.210 Nicotine dependence, cigarettes, uncomplicated; Z79.01 Long term (current) use of anticoagulants; Z79.4 Long term (current) use of insulin; Z79.51 Long term (current) use of inhaled steroids; Z79.899 Other long term (current) drug therapy
CPT/HCPCS: 36415; 70450; 71045; 80048; 80053; 80069; 80307; 81001; 82077; 82550; 82948; 83605; 83735; 84443; 84484; 85025; 85027; 85610; 85730; 87040; 93005; 96360; 96361; 99285; A9270; G0378; J1815; J7030; J7120